=== PATIENT | male | born 1940 | race African-American/Black ===

== ENCOUNTER 2016-03-04 00:10 | Inpatient (IN) | payer MEDICARE, MEDICAID ==
[~2016-03-04] VITALS: Ht 188 cm; Wt 90.1 kg
[2016-03-04 01:15] LABS: BASOPHILS # (AUTO) 0.03 K/uL (0.00-0.20); BASOPHILS % (AUTO) 0.3 % (0.0-2.0); EOSINOPHILS # (AUTO) 0.06 K/uL (0.00-0.70); EOSINOPHILS % (AUTO) 0.59 % (1.0-6.0); HEMATOCRIT 42.2 % (41-53); LYMPHOCYTES # (AUTO) 2.8 K/uL (1.0-4.8); LYMPHOCYTES % (AUTO) 27.7 % (22.0-44.0); MEAN CORPUSCULAR HEMOGLOBIN 26.8 pg (26.0-34.0); MEAN CORPUSCULAR HGB CONC 33.1 G/dL (31.0-37.0); MEAN CORPUSCULAR VOLUME 81 fL (80-100); MONOCYTES # (AUTO) 0.6 K/uL (0.1-1.0); MONOCYTES % (AUTO) 6.3 % (2.0-9.0); NEUTROPHILS # (AUTO) 6.5 K/uL (1.8-7.7); NEUTROPHILS % (AUTO) 65.1 % (40.0-70.0); PLATELET COUNT (AUTO) 224 K/uL (150-450); RED BLOOD CELL COUNT(AUTO) 5.22 MIL/uL (4.50-5.90); RED CELL DISTRIBUTION WIDTH 14.8 % (11.5-14.5)
[2016-03-04 01:39] LABS: ANION GAP 7 mmol/L (8-16); CALCIUM, TOTAL 9.5 mg/dL (8.8-10.5); CARBON DIOXIDE 33 mmol/L (22-29); CHLORIDE 101 mmol/L (98-107); CREATININE 1.87 mg/dL (0.60-1.30); GLOMERULAR FILTR. RATE CALC 43 mL/min (>60); SODIUM SERUM 141 mmol/L (136-145); UREA NITROGEN, BLOOD 21 mg/dL (7-18)
[2016-03-04 01:46] LABS: ALANINE AMINOTRANSFERASE 20 U/L (12-78); ALBUMIN 3.6 g/dL (3.4-5.0); ASPARTATE AMINOTRANSFERASE 23 U/L (15-37); BILIRUBIN,TOTAL 0.2 mg/dL (0.1-1.0); TOTAL PROTEIN, SERUM 7.8 g/dL (6.4-8.2)
[2016-03-04] MEDS ORDERED: ZOLPIDEM TARTRATE 5 MG TABLET PO PRN (05:30)
[2016-03-04] MEDS ORDERED: LORazepam 1 MG TABLET PO PRN (05:30)
[2016-03-04] MEDS ORDERED: HALOPERIDOL 5 MG TABLET PO ONE (06:00)
[2016-03-04] MEDS ORDERED: LORazepam 2 MG TABLET PO ONE (06:00)
[2016-03-04 15:49] VITALS: BP 145/82
[2016-03-04 16:04] VITALS: BP 145/82
[2016-03-05 08:30] VITALS: BP 164/114
[2016-03-05] MEDS ORDERED: ONDANSETRON HCL 4 MG TABLET PO PRN (08:45)
[2016-03-05] MEDS ORDERED: BACITRACIN 28.4 GM OINTMENT TP PRN (08:45)
[2016-03-05] MEDS ORDERED: PETROLATUM,WHITE 71 GM JELLY TP PRN (08:45)
[2016-03-05] MEDS ORDERED: MAG HYDROX/AL HYDROX/SIMETH ES 30 ML SUSPENSION UDCUP PO PRN (08:45)
[2016-03-05] MEDS ORDERED: MAGNESIUM HYDROXIDE SUSPENSION 30 ML UDCUP PO PRN (08:45)
[2016-03-05] MEDS ORDERED: ACETAMINOPHEN 325 MG TABLET PO PRN (08:45)
[2016-03-05] MEDS ORDERED: LOPERAMIDE HCL 2 MG CAPSULE PO PRN (08:45)
[2016-03-05] MEDS ORDERED: ALBUTEROL SULFATE HFA 90 MCG/PUFF 8 GM INHALER IH PRN (08:45)
[2016-03-05] MEDS ORDERED: CloNIDine HCL 0.1 MG TABLET PO PRN (08:45)
[2016-03-05] MEDS ORDERED: IBUPROFEN 600 MG TABLET PO PRN (08:45)
[2016-03-05] MEDS ORDERED: BENZOCAINE/MENTHOL LOZENGE [8 LOZENGES/PACKET] MM PRN (09:00)
[2016-03-05 16:03] VITALS: BP 130/78
[2016-03-05] MEDS: RisperiDONE 2 MG TABLET PO SCH (17:25)
[2016-03-06 05:52] VITALS: BP 145/80
[2016-03-06 07:19] LABS: CALCIUM, TOTAL 8.9 mg/dL (8.8-10.5); CREATININE 1.41 mg/dL (0.60-1.30); POTASSIUM 3.4 mmol/L (3.5-5.1); THYROID STIMULATING HORMONE 4.98 uIU/mL (0.36-3.74)
[2016-03-06] MEDS: RisperiDONE 2 MG TABLET PO SCH ×2 (08:16→16:50)
[2016-03-06 10:44] VITALS: BP 183/100
[2016-03-06] MEDS ORDERED: POTASSIUM CHLORIDE 20 MEQ ER TABLET PO ONE (13:45)
[2016-03-06] MEDS: LISINOPRIL 20 MG TABLET PO SCH (13:59)
[2016-03-06] MEDS: AmLODIPine BESYLATE 5 MG TABLET PO SCH (13:59)
[2016-03-06] MEDS: METOPROLOL TARTRATE 50 MG TABLET PO SCH (16:50)
[2016-03-06 17:00] VITALS: BP 150/102
[2016-03-07] MEDS: LEVOTHYROXINE SODIUM 25 MCG TABLET PO SCH (06:57)
[2016-03-07 08:00] VITALS: BP 168/103
[2016-03-07] MEDS: RisperiDONE 2 MG TABLET PO SCH ×2 (08:38→17:06)
[2016-03-07] MEDS: AmLODIPine BESYLATE 5 MG TABLET PO SCH (08:38)
[2016-03-07] MEDS: LISINOPRIL 20 MG TABLET PO SCH (08:38)
[2016-03-07] MEDS: CHOLECALCIFEROL (VIT D3) 1,000 UNITS TABLET PO SCH (08:38)
[2016-03-07] MEDS: METOPROLOL TARTRATE 50 MG TABLET PO SCH ×2 (08:40→17:00)
[2016-03-07 17:53] VITALS: BP 139/79
[2016-03-08] MEDS: LEVOTHYROXINE SODIUM 25 MCG TABLET PO SCH (06:14)
[2016-03-08 07:07] VITALS: BP 149/88
[2016-03-08 08:00] VITALS: BP 156/83
[2016-03-08] MEDS: CHOLECALCIFEROL (VIT D3) 1,000 UNITS TABLET PO SCH (08:14)
[2016-03-08] MEDS: RisperiDONE 2 MG TABLET PO SCH ×2 (08:14→16:06)
[2016-03-08] MEDS: AmLODIPine BESYLATE 5 MG TABLET PO SCH (08:14)
[2016-03-08] MEDS: LISINOPRIL 20 MG TABLET PO SCH (08:14)
[2016-03-08] MEDS: METOPROLOL TARTRATE 50 MG TABLET PO SCH ×2 (08:14→17:00)
[2016-03-08 18:43] VITALS: BP 154/83
[2016-03-09] MEDS: LEVOTHYROXINE SODIUM 25 MCG TABLET PO SCH (06:33)
[2016-03-09 08:00] VITALS: BP 166/100
[2016-03-09] MEDS: AmLODIPine BESYLATE 5 MG TABLET PO SCH (08:09)
[2016-03-09] MEDS: METOPROLOL TARTRATE 50 MG TABLET PO SCH ×2 (08:09→16:31)
[2016-03-09] MEDS: RisperiDONE 2 MG TABLET PO SCH ×2 (08:09→16:31)
[2016-03-09] MEDS: CHOLECALCIFEROL (VIT D3) 1,000 UNITS TABLET PO SCH (08:09)
[2016-03-09] MEDS: LISINOPRIL 20 MG TABLET PO SCH (08:09)
[2016-03-09 16:41] VITALS: BP 126/79
[2016-03-10 01:46] VITALS: BP 149/88
[2016-03-10] MEDS: LEVOTHYROXINE SODIUM 25 MCG TABLET PO SCH (06:37)
[2016-03-10 08:00] VITALS: BP 152/76
[2016-03-10] MEDS: LISINOPRIL 20 MG TABLET PO SCH (08:10)
[2016-03-10] MEDS: RisperiDONE 2 MG TABLET PO SCH ×2 (08:10→16:13)
[2016-03-10] MEDS: CHOLECALCIFEROL (VIT D3) 1,000 UNITS TABLET PO SCH (08:10)
[2016-03-10] MEDS: METOPROLOL TARTRATE 50 MG TABLET PO SCH ×2 (08:10→16:13)
[2016-03-10] MEDS: AmLODIPine BESYLATE 5 MG TABLET PO SCH (08:10)
[2016-03-10 19:07] VITALS: BP 134/70
[2016-03-11] MEDS: LEVOTHYROXINE SODIUM 25 MCG TABLET PO SCH (06:15)
[2016-03-11 06:48] VITALS: BP 140/78
[2016-03-11 08:05] VITALS: BP 156/85
[2016-03-11] MEDS: CHOLECALCIFEROL (VIT D3) 1,000 UNITS TABLET PO SCH (09:15)
[2016-03-11] MEDS: LISINOPRIL 20 MG TABLET PO SCH (09:16)
[2016-03-11] MEDS: METOPROLOL TARTRATE 50 MG TABLET PO SCH ×2 (09:16→16:32)
[2016-03-11] MEDS: RisperiDONE 2 MG TABLET PO SCH ×2 (09:16→16:32)
[2016-03-11] MEDS: AmLODIPine BESYLATE 5 MG TABLET PO SCH (09:16)
[2016-03-11 16:26] VITALS: BP 120/69
[2016-03-12] MEDS: LEVOTHYROXINE SODIUM 25 MCG TABLET PO SCH (06:38)
[2016-03-12 06:56] VITALS: BP 149/79
[2016-03-12 08:51] VITALS: BP 158/82
[2016-03-12] MEDS: METOPROLOL TARTRATE 50 MG TABLET PO SCH ×2 (09:22→15:58)
[2016-03-12] MEDS: CHOLECALCIFEROL (VIT D3) 1,000 UNITS TABLET PO SCH (09:22)
[2016-03-12] MEDS: AmLODIPine BESYLATE 5 MG TABLET PO SCH (09:23)
[2016-03-12] MEDS: LISINOPRIL 20 MG TABLET PO SCH (09:23)
[2016-03-12] MEDS: RisperiDONE 2 MG TABLET PO SCH ×2 (09:23→15:58)
[2016-03-12 16:19] VITALS: BP 127/71
[2016-03-13] MEDS: LEVOTHYROXINE SODIUM 25 MCG TABLET PO SCH (07:23)
[2016-03-13 08:00] VITALS: BP 156/93
[2016-03-13] MEDS: METOPROLOL TARTRATE 50 MG TABLET PO SCH ×2 (08:26→16:01)
[2016-03-13] MEDS: RisperiDONE 2 MG TABLET PO SCH ×2 (08:26→16:01)
[2016-03-13] MEDS: AmLODIPine BESYLATE 10 MG TABLET PO SCH (08:26)
[2016-03-13] MEDS: CHOLECALCIFEROL (VIT D3) 1,000 UNITS TABLET PO SCH (08:26)
[2016-03-13] MEDS: LISINOPRIL 20 MG TABLET PO SCH (08:26)
[2016-03-13 16:38] VITALS: BP 128/64
[2016-03-14] MEDS: LEVOTHYROXINE SODIUM 25 MCG TABLET PO SCH (06:37)
[2016-03-14] MEDS: METOPROLOL TARTRATE 50 MG TABLET PO SCH ×3 (08:34→20:26)
[2016-03-14] MEDS: CHOLECALCIFEROL (VIT D3) 1,000 UNITS TABLET PO SCH (08:34)
[2016-03-14] MEDS: AmLODIPine BESYLATE 10 MG TABLET PO SCH (08:34)
[2016-03-14] MEDS: RisperiDONE 2 MG TABLET PO SCH ×3 (08:34→20:27)
[2016-03-14] MEDS: LISINOPRIL 20 MG TABLET PO SCH (08:34)
[2016-03-14 08:55] VITALS: BP 160/79
[2016-03-14 18:27] VITALS: BP 140/80
[2016-03-15] MEDS: LEVOTHYROXINE SODIUM 25 MCG TABLET PO SCH (06:21)
[2016-03-15 08:00] VITALS: BP 144/79
[2016-03-15] MEDS: CHOLECALCIFEROL (VIT D3) 1,000 UNITS TABLET PO SCH (08:09)
[2016-03-15] MEDS: RisperiDONE 2 MG TABLET PO SCH ×2 (08:09→16:21)
[2016-03-15] MEDS: METOPROLOL TARTRATE 50 MG TABLET PO SCH ×2 (08:09→16:21)
[2016-03-15] MEDS: LISINOPRIL 20 MG TABLET PO SCH (08:09)
[2016-03-15] MEDS: AmLODIPine BESYLATE 10 MG TABLET PO SCH (08:09)
[2016-03-15 16:38] VITALS: BP 141/88
[2016-03-16] MEDS: LEVOTHYROXINE SODIUM 25 MCG TABLET PO SCH (06:27)
[2016-03-16] MEDS: RisperiDONE 3 MG TABLET PO SCH ×2 (08:40→16:13)
[2016-03-16] MEDS: AmLODIPine BESYLATE 10 MG TABLET PO SCH (08:40)
[2016-03-16] MEDS: LISINOPRIL 20 MG TABLET PO SCH (08:40)
[2016-03-16] MEDS: CHOLECALCIFEROL (VIT D3) 1,000 UNITS TABLET PO SCH (08:41)
[2016-03-16] MEDS: METOPROLOL TARTRATE 50 MG TABLET PO SCH ×2 (08:41→16:13)
[2016-03-16 09:17] VITALS: BP 163/96
[2016-03-16 16:56] VITALS: BP 127/70
[2016-03-17] MEDS: LEVOTHYROXINE SODIUM 25 MCG TABLET PO SCH (06:29)
[2016-03-17 06:37] VITALS: BP 124/72
[2016-03-17] MEDS: RisperiDONE 3 MG TABLET PO SCH ×2 (08:57→16:47)
[2016-03-17] MEDS: METOPROLOL TARTRATE 50 MG TABLET PO SCH ×2 (08:57→16:47)
[2016-03-17] MEDS: LISINOPRIL 20 MG TABLET PO SCH (08:57)
[2016-03-17] MEDS: AmLODIPine BESYLATE 10 MG TABLET PO SCH (08:57)
[2016-03-17] MEDS: CHOLECALCIFEROL (VIT D3) 1,000 UNITS TABLET PO SCH (08:57)
[2016-03-17 09:48] VITALS: BP 160/85
[2016-03-17 17:00] VITALS: BP 149/74
[2016-03-18] MEDS: LEVOTHYROXINE SODIUM 25 MCG TABLET PO SCH (06:31)
[2016-03-18 06:47] VITALS: BP 130/75
[2016-03-18] MEDS: LISINOPRIL 20 MG TABLET PO SCH (08:38)
[2016-03-18] MEDS: CHOLECALCIFEROL (VIT D3) 1,000 UNITS TABLET PO SCH (08:39)
[2016-03-18] MEDS: AmLODIPine BESYLATE 10 MG TABLET PO SCH (08:39)
[2016-03-18] MEDS: METOPROLOL TARTRATE 50 MG TABLET PO SCH ×2 (08:39→16:23)
[2016-03-18] MEDS: RisperiDONE 3 MG TABLET PO SCH ×2 (08:39→16:23)
[2016-03-18 09:30] VITALS: BP 172/112
[2016-03-18] MEDS ORDERED: POTASSIUM CHLORIDE 20 MEQ ER TABLET PO ONE (10:30)
[2016-03-18 17:00] VITALS: BP 162/75
[2016-03-19] MEDS: LEVOTHYROXINE SODIUM 25 MCG TABLET PO SCH (06:42)
[2016-03-19 07:13] LABS: CALCIUM, TOTAL 8.8 mg/dL (8.8-10.5); CREATININE 1.48 mg/dL (0.60-1.30); POTASSIUM 4.8 mmol/L (3.5-5.1)
[2016-03-19 09:24] VITALS: BP 158/100
[2016-03-19] MEDS: AmLODIPine BESYLATE 10 MG TABLET PO SCH (09:26)
[2016-03-19] MEDS: CHOLECALCIFEROL (VIT D3) 1,000 UNITS TABLET PO SCH (09:26)
[2016-03-19] MEDS: LISINOPRIL 20 MG TABLET PO SCH (09:26)
[2016-03-19] MEDS: METOPROLOL TARTRATE 50 MG TABLET PO SCH ×2 (09:26→17:00)
[2016-03-19] MEDS: RisperiDONE 3 MG TABLET PO SCH ×2 (09:26→17:00)
[2016-03-19 16:37] VITALS: BP 137/70
[2016-03-20] MEDS: LEVOTHYROXINE SODIUM 25 MCG TABLET PO SCH (06:40)
[2016-03-20 06:50] VITALS: BP 148/95
[2016-03-20 08:00] VITALS: BP 161/87
[2016-03-20] MEDS: CHOLECALCIFEROL (VIT D3) 1,000 UNITS TABLET PO SCH (08:30)
[2016-03-20] MEDS: RisperiDONE 3 MG TABLET PO SCH ×2 (08:30→16:39)
[2016-03-20] MEDS: METOPROLOL TARTRATE 50 MG TABLET PO SCH ×2 (08:30→16:39)
[2016-03-20] MEDS: AmLODIPine BESYLATE 10 MG TABLET PO SCH (08:30)
[2016-03-20] MEDS: LISINOPRIL 20 MG TABLET PO SCH (08:31)
[2016-03-20 10:35] VITALS: BP 139/68
[2016-03-20 16:49] VITALS: BP 155/72
[2016-03-21] MEDS: LEVOTHYROXINE SODIUM 25 MCG TABLET PO SCH (06:18)
[2016-03-21 06:30] VITALS: BP 154/90
[2016-03-21 08:15] VITALS: BP 181/101
[2016-03-21] MEDS: METOPROLOL TARTRATE 50 MG TABLET PO SCH (08:34)
[2016-03-21] MEDS: LISINOPRIL 20 MG TABLET PO SCH (08:34)
[2016-03-21] MEDS: AmLODIPine BESYLATE 10 MG TABLET PO SCH (08:34)
[2016-03-21] MEDS: RisperiDONE 3 MG TABLET PO SCH (08:34)
[2016-03-21] MEDS: CHOLECALCIFEROL (VIT D3) 1,000 UNITS TABLET PO SCH (08:35)
[2016-03-21 10:35] VITALS: BP 128/65
[2016-03-21] MEDS ORDERED: RISP3 PO (10:53)
[2016-03-21] MEDS ORDERED: AMLO-512 PO (10:55)
[2016-03-21] MEDS ORDERED: LISI-662 PO (10:57)
[2016-03-21] MEDS ORDERED: VITAD1000 PO (10:57)
[2016-03-21] MEDS ORDERED: LEVO25TA9 PO (10:57)
[2016-03-21] MEDS ORDERED: METO50 PO (10:58)
== END 2016-03-21 13:15 | disposition home or self-care (01) | DRG 885 ==
LOC: EMS 00:11 → 3EX 15:14
PROVIDERS: ADMIT Psychiatry & Neurology Child & Adolescent Psychiatry; ATTEND Psychiatry & Neurology Child & Adolescent Psychiatry
DX: F25.0 Schizoaffective disorder, bipolar type (principal); F15.20 Other stimulant dependence, uncomplicated; N17.9 Acute kidney failure, unspecified; F17.210 Nicotine dependence, cigarettes, uncomplicated; G89.29 Other chronic pain; I12.9 Hypertensive chronic kidney disease with stage 1 through stage 4 chronic kidney disease, or unspecified chronic kidney disease; N18.9 Chronic kidney disease, unspecified; J44.9 Chronic obstructive pulmonary disease, unspecified; M19.90 Unspecified osteoarthritis, unspecified site; E87.6 Hypokalemia; Z98.1 Arthrodesis status; Z98.890 Other specified postprocedural states; Z71.6 Tobacco abuse counseling; Z59.0 Homelessness; Z71.51 Drug abuse counseling and surveillance of drug abuser
CPT/HCPCS: 82306; 84443; 99285; G0480; J3535